=== PATIENT | female | born 1990 | race Hispanic/Latino ===

== ENCOUNTER 2016-07-17 21:21 | Emergency (ER) | payer OTHER ==
[~2016-07-17] VITALS: Ht 147.3 cm; Wt 68.2 kg
[~2016-07-17 21:21] MED LIST: ONDA4TAB12 PO; ONDA4TAB9 PO; ONDA8TAB10 PO; OXYC1TAB24 PO; SULF1TAB7 PO; TAMS0.4C98 PO
[2016-07-17 21:24] VITALS: BP 132/89; PULSE 112; RESP 16; O2SAT 96
--- NOTE | 2016-07-17 22:28 | ED.REPORT ---
HPI-Dyspnea / Wheezing Date of Service Jul 17, 2016 ED Provider: Juanjo Jacobo MD This is a 26 year old female with a history of asthma presenting to the emergency department due to cough that began 3 days ago. Associated symptoms include shortness of breath, chest pain, bilateral earache, sore throat, fever, and chills. Cough is productive with green sputum. Chest pain exacerbated by deep inspiration. She is not using an inhaler at this time and has not required one previously. Denies nausea, vomiting, abdominal pain, dizziness, lightheadedness, headache, bowel or bladder changes. Nursing Notes Stated Complaint: CHEST PAIN, SORE THROAT Chief Complaint: Respiratory Complaints Nursing Notes Reviewed: Yes Allergies: Coded Allergies: No Known Allergies (Verified Allergy, Unknown, 08/20/15) Scheduled Ondansetron ODT (Ondansetron ODT) 8 Mg Tab.rapdis 8 MG PO QID Sulfamethoxazole/Trimeth 800-160 mg (Bactrim DS) 1 Each Tablet 1 TABLET PO BID Tamsulosin (Flomax) 0.4 Mg Capsule 0.4 MG PO DAILY Scheduled PRN Ondansetron ODT (Ondansetron ODT) 4 Mg Tab.rapdis 4 MG PO [id number] PRN PRN For Nausea Ondansetron ODT (Zofran ODT) 4 Mg Tablet 4 MG PO Q4H PRN PRN For Nausea Ondansetron ODT (Ondansetron ODT) 8 Mg Tab.rapdis 8 MG PO QID PRN PRN For Nausea oxyCODONE-Acetaminophen 5-325 mg (oxyCODONE-Acetaminophen 5-325 mg) 1 Each Tablet 1-2 TAB PO Q6H PRN PRN For Pain General Time Seen by MD: 22:25 Chief Complaint Shortness of breath Hx Obtained From: Patient Arrived By: Walk-in Sudden in Onset?: Yes Onset Occurred: Yesterday Symptom Duration: Since onset Severity: Current: Mild Pertinent Negative: Pt denies other symptoms Recent Healthcare: No recent doctor visit, No recent hospitalization Similar Sx Previous: No Risk Factors CAD Risk Stratification No Diabetes mellitus, No Hyperlipidemia, No Hypertension, No Known CAD, No Smoking Risk factors reviewed, No risk factors Past Medical History Past Medical History Reports: Asthma Past Surgical History wrist surgery and oral surgery as a child Reports: , Cholecystectomy Smoking History Never Smoker Social History Alcohol Use: Denies alcohol use Drug Use: Denies drug use Other Social History: Good social support, Lives with children, Local resident Occupation lives with children Ambulatory Status Independent Review of Systems Constitutional: Reports: Chills, Fever, Malaise Respiratory: Reports: Prod cough, green, Shortness of breath Cardiovascular: Reports: Chest pain Complete sys rev & neg: except as marked. Physical Exam Initial Vital Signs Vital Signs (First) Date Time Temp Pulse Resp B/P Pulse Ox O2 Delivery O2 Flow Rate FiO2 07/17/16 21:24 37.2 112 16 132/89 96 Room Air Initial VS: Reviewed, Vital signs abnormal Head / Eyes: Atraumatic, Normocephalic, PERRL ENT: Mucous membranes moist, Conjunctiva normal, No scleral icterus Abdomen / GI: Soft, Non-tender, No guarding, No rebound, No distention Extremities: Vascular intact, Neuro intact, No swelling, No tenderness Skin: Warm, Dry, No cyanosis Neurologic: Alert, Oriented, Nonfocal Psychiatric: Mood/affect normal, Behavior normal, Normal thought content General/Constitutional: Awake, Alert Neck: Supple, No meningismus, Full range of motion, Non-tender, No masses Soft Tissue Neck: Positive: Cervical adenopathy L..., Cervical adenopathy R... Respiratory / Chest: No respiratory distress, No wheezing Cardiovascular: Heart rate NL, Regular rhythm, Heart sounds NL, Peripheral circulation NL ENT: Mucous membranes moist, Tympanic membs NL Pharynx / Tonsils / Uvula: Positive: Pharyngeal erythema Interpretation & Diagnostics X-Ray Chest Interpretation Interpretation / Wet Read by: Wet read ED physician Infiltrate / Pneumothorax: Infiltrate L lower lung Re-Eval/Medical Decision Med Decision/Clinical Course 26-year-old female with left lower lobe pneumonia, strep throat, and UTI. Treated with azithromycin. She does not meet any admission criteria. Counseled Regarding: Diagnosis, Lab results, Need for follow-up, When/why to return to ED Discharge & Departure Impression: Primary Impression: Pneumonia Pneumonia type: due to unspecified organism Laterality: left Lung location : lower lobe of lung Qualified Code: J18.9 - Pneumonia, unspecified organism Additional Impressions: Strep pharyngitis UTI (lower urinary tract infection) Disposition: Home Discharge Condition All VS Reviewed: Yes Condition: Stable Patient Instructions: Bacterial Pneumonia (ED), Strep Throat (ED), Urinary Tract Infection in Women (DC) Additional Instructions: You have left lower lobe pneumonia, strep throat, and a urinary tract infection. 250 mg, 2 pills now then 1 pill daily until gone #6 dispensed. Drink plenty of fluids. Your son needs to be checked for strep throat also. See your regular doctor if not improving in 2 or 3 days. Referrals: Rosalina Jimenez MD (PCP) Scribe Attestation Portions of this note were transcribed by Leroy Mtz. I, Dr. Jacobo personally performed the history, physical exam and medical decision-making; I reviewed and confirmed the accuracy of the information in the transcribed note. Signed by: iker Martines. 07/17/2016, 06:00. Juanjo Jacobo MD Jul 17, 2016 22:28 LEROY MTZ Jul 17, 2016 22:37
[2016-07-17] MEDS ORDERED: _Azithromycin 250 mg Tablet PO SCH (22:40)
[2016-07-17 23:11] VITALS: BP 126/92; PULSE 116; RESP 16; O2SAT 97
--- NOTE | 2016-07-18 08:23 | DRSVH ---
PROCEDURE: X-RAY CHEST ONE VIEW, PORTABLE ([id number]) INDICATIONS: cough TECHNIQUE: One view of the chest was acquired. COMPARISON: None. FINDINGS: Surgical changes and devices: None. Lungs and pleura: No pleural effusions or pneumothorax. Mild patchy opacity at the left medial lung base. Mediastinum: Mediastinal contours appear normal. Heart size is normal. Bones and chest wall: No suspicious bony lesions. Overlying soft tissues appear unremarkable. IMPRESSION: Mild left basilar atelectasis versus pneumonia. Dictated by: Carole Reyes M.D. on 07/18/2016 at 8:21 Approved by: Carole Reyes M.D. on 07/18/2016 at 8:21
== END 2016-07-17 23:12 | disposition home or self-care (01) ==
LOC: SED 21:21
DX: J18.9 Pneumonia, unspecified organism (principal); J02.0 Streptococcal pharyngitis; N39.0 Urinary tract infection, site not specified; R06.02 Shortness of breath; R07.9 Chest pain, unspecified; J45.909 Unspecified asthma, uncomplicated

== ENCOUNTER 2016-07-18 23:51 | Emergency (ER) | payer OTHER ==
[~2016-07-18] VITALS: Ht 147.3 cm; Wt 68.2 kg
[2016-07-18 23:57] VITALS: BP 123/87; PULSE 111; RESP 15; O2SAT 98
--- NOTE | 2016-07-19 02:05 | ED.REPORT ---
HPI-Dyspnea / Wheezing Date of Service Jul 19, 2016 ED Provider: Juanjo Jacobo MD Patient is a 26 year old female with a history of asthma who was recently diagnosed with pneumonia, strep throat, and a UTI presents to the ED complaining of shortness of breath, after experiencing 4 days of upper respiratory symptoms. Patient was seen in the ED yesterday for this complaint and was started on Azithromycin. Patient states that her symptoms have not improved since she started taking the antibiotics and that she is now having difficulty breathing. She reports chest pain with respiration and that her normal pain medication has not improved her symptoms. Patient reports being nauseated and that she has barely been able to consume her medications. She has not vomited. Patient reports ongoing cough and congestion but denies a fever. Nursing Notes Stated Complaint: POSSIBLE PNEUMONIA/UTI Chief Complaint: Respiratory Complaints Nursing Notes Reviewed: Yes Allergies: Coded Allergies: No Known Allergies (Verified Allergy, Unknown, 08/20/15) Scheduled Cephalexin (Cephalexin) 500 Mg Capsule 500 MG PO TID Ondansetron ODT (Ondansetron ODT) 8 Mg Tab.rapdis 8 MG PO QID Ondansetron ODT (Ondansetron ODT) 8 Mg Tab.rapdis 8 MG PO QID Sulfamethoxazole/Trimeth 800-160 mg (Bactrim DS) 1 Each Tablet 1 TABLET PO BID Tamsulosin (Flomax) 0.4 Mg Capsule 0.4 MG PO DAILY Scheduled PRN Ondansetron ODT (Ondansetron ODT) 4 Mg Tab.rapdis 4 MG PO [id number] PRN PRN For Nausea Ondansetron ODT (Zofran ODT) 4 Mg Tablet 4 MG PO Q4H PRN PRN For Nausea Ondansetron ODT (Ondansetron ODT) 8 Mg Tab.rapdis 8 MG PO QID PRN PRN For Nausea oxyCODONE-Acetaminophen 5-325 mg (oxyCODONE-Acetaminophen 5-325 mg) 1 Each Tablet 1-2 TAB PO Q6H PRN PRN For Pain General Time Seen by MD: 02:03 Chief Complaint Cough, Shortness of breath Hx Obtained From: Patient Arrived By: Walk-in Sudden in Onset?: No Onset Occurred: 4 days ago Symptom Duration: Since onset Location: : Chest left: Chest right Quality: Pleuritic Severity: Current: Moderate Severity: Maximum: Moderate Recent Healthcare: Recent doctor visit Similar Sx Previous: Yes Past Medical History Past Medical History kidney stones Reports: Asthma Past Surgical History wrist surgery and oral surgery as a child Reports: , Cholecystectomy Smoking History Never Smoker Social History Alcohol Use: Denies alcohol use Drug Use: Denies drug use Other Social History: Good social support, Lives with children, Local resident Occupation lives with children Ambulatory Status Independent Review of Systems Constitutional: Denies: Chills, Fever Ears / Nose / Throat: Reports: Nasal congestion Respiratory: Reports: Non-productive cough, Pleuritic pain, Shortness of breath Complete sys rev & neg: except as marked. GI: Reports: Nausea, Denies: Vomiting Physical Exam Initial Vital Signs Vital Signs (First) Date Time Temp Pulse Resp B/P Pulse Ox O2 Delivery O2 Flow Rate FiO2 07/18/16 23:57 36.8 111 15 123/87 98 Room Air Initial VS: Reviewed, Vital signs abnormal Head / Eyes: Atraumatic, Normocephalic, PERRL ENT: Conjunctiva normal, No scleral icterus Abdomen / GI: Soft, Non-tender Extremities: Vascular intact, Neuro intact Skin: Warm, Dry, No cyanosis Neurologic: Alert, Oriented, Nonfocal Psychiatric: Mood/affect normal, Behavior normal, Normal thought content General/Constitutional: Awake, Alert, No acute distress wearing a mask Neck: Supple, Full range of motion Respiratory / Chest: Breath sounds NL, Breath sounds = bilat, No respiratory distress, No rales, No rhonchi, No wheezing Cardiovascular: Heart rate NL, Regular rhythm, Heart sounds NL, No murmurs Interpretation & Diagnostics Lab Results Interpretation Result Diagram: 07/19/16 0300 07/19/16 0300 Test 07/19/16 03:00 07/19/16 03:50 White Blood Count 3.4th/mm3 (3.8-10.1) Red Blood Count 5.42mil/mm3 (3.90-5.20) Hemoglobin 15.2g/dL (12.0-15.6) Hematocrit 45.1% (35.0-46.0) Mean Corpuscular Volume 83.2fL (81-100) Mean Corpuscular Hemoglobin 28.0pg (27.0-35.0) Mean Corpuscular Hemoglobin Concent 33.7% (32.0-37.0) Red Cell Distribution Width 13.7% (12.3-15.4) Platelet Count 238bil/L (150-400) Neutrophils (%) (Auto) 38.9% (40-74) Lymphocytes (%) (Auto) 46.6% (14-46) Monocytes (%) (Auto) 13.6% (4-12) Eosinophils (%) (Auto) 0% (0-5) Basophils (%) (Auto) 0.6% (0-3) Sodium Level 141mEq/L (134-144) Potassium Level 3.0mEq/L (3.5-5.2) Chloride Level 100mEq/L (97-108) Carbon Dioxide Level 25mmol/L (18-29) Blood Urea Nitrogen 9mg/dL (6-20) Creatinine 0.47mg/dL (0.57-1.00) Estimat Glomerular Filtration Rate 233mL/min (>59) Glucose Level 123mg/dL (60-99) Calcium Level 8.3mg/dL (8.5-10.1) Magnesium Level 2.1mg/dL (1.6-2.6) Total Bilirubin 0.3mg/dL (0.0-1.2) Aspartate Amino Transf (AST/SGOT) 27U/L (0-50) Alanine Aminotransferase (ALT/SGPT) 22U/L (0-32) Alkaline Phosphatase 84U/L (25-150) Troponin T 0.010ug/L (0.0-0.011) Total Protein 7.6g/dL (6.4-8.4) Albumin 4.2g/dL (3.4-5.0) Lactic Acid Level 1.0mmol/L (0.4-2.0) Lab Results Interpretation: Hypokalemia ECG Interpretation ECG Interpretation: Sinus tachycardia, Rate 112 Time: 04:05 Interpreted by: ED physician X-Ray Chest Interpretation Chest Xray Interpretation: Impression: Improving left lower lobe pneumonia. View: AP & lat Interpretation / Wet Read by: Wet read ED physician Reviewed Previous Films: Improved Re-Eval/Medical Decision Med Decision/Clinical Course 26-year-old female with improving chest x-ray but clinically feels that she is getting worse. She was found to be hypokalemic. She was given fluids and potassium. She was given IV doses of antibiotic and Keflex was added. She is chronically dissatisfied with her care at [facility] related to her brother dying of pneumonia here. She does not meet any criteria for admission and actually appears to be improving. Source of Hx: Old records Re-Evaluation/Progress : Time of Eval: 05:22 Patient Status: Condition improved Re-Evaluation/Progress Note: Rechecked the patient after she received IV antibiotics in the ED. She is improved after breathing treatment. Informed her that her chest x-ray is improving on x-ray today. Patient understands and agrees with the plan to be discharged home. Discharge instructions and follow-up discussed. All questions were addressed. Return to the ED warnings given. Counseled Regarding: Diagnosis, Lab results, Need for follow-up, When/why to return to ED Discharge & Departure Impression: Primary Impression: Pneumonia Pneumonia type: due to unspecified organism Laterality: left Lung location : lower lobe of lung Qualified Code: J18.9 - Pneumonia, unspecified organism Additional Impressions: Strep pharyngitis UTI (lower urinary tract infection) Disposition: Home Discharge Condition All VS Reviewed: Yes Condition: Stable Patient Instructions: Community-acquired Pneumonia (ED) Additional Instructions: Continue the azithromycin. Add an additional antibiotic, cephalexin 500 mg by mouth 3 times a day, #30 prescription written. Ondansetron (Zofran) 8 mg ODT, 1 /2-1 tablet 4 times daily as needed for nausea and vomiting, #10 prescription written. Drink plenty of fluids. Follow-up here or with your regular doctor if you are not improving. Referrals: Rosalina Jimenez MD (PCP) Hellen Attestation Portions of this note were transcribed by Gloria Medina. I, Dr. Jacobo personally performed the history, physical exam and medical decision-making; I reviewed and confirmed the accuracy of the information in the transcribed note. Signed by: Hellen Ayala, 07/19/2016 0618 copies to: Rosalina Jimenez MD, Juanjo De La Garza MD Jul 19, 2016 02:05 Gloria Medina Jul 19, 2016 02:12
[2016-07-19] MEDS ORDERED: 0.9% Sodium Chloride 1,000 ML IV ONE (02:11)
[2016-07-19] MEDS ORDERED: Albuterol 2.5 mg/3 mL Inhalation Solution NEB ONE (02:15)
[2016-07-19] MEDS ORDERED: Albuterol-Ipratropium 3 mL Inhalation Solution NEB ONE (02:15)
[2016-07-19] MEDS ORDERED: Ondansetron 2 mg/mL 2 mL Inj IVPUSH PRN (02:40)
[2016-07-19] MEDS: HYDROmorphone 0.5 mg/0.5 mL iSecure Syringe IVPUSH PRN ×3 (03:09→04:34)
[2016-07-19 03:23] LABS: BASOPHILS % (AUTO) 0.6 % (0-3); EOSINOPHILS % (AUTO) 0 % (0-5); MONOCYTES % (AUTO) 13.6 % (4-12); Mean Corpuscular Volume 83.2 fL (81-100); NEUTROPHILS % (AUTO) 38.9 % (40-74); Platelet Count 238 bil/L (150-400)
[2016-07-19 03:35] VITALS: PULSE 91; RESP 16; O2SAT 99
[2016-07-19 03:44] LABS: TROPONIN T 0.01 ug/L (0.0-0.011)
[2016-07-19 03:56] LABS: Magnesium 2.1 mg/dL (1.6-2.6)
[2016-07-19] MEDS ORDERED: Azithromycin Inj 500 MG in Dextrose 5% w/Vial Mate 250 ML IV ONE (04:05)
[2016-07-19] MEDS ORDERED: Potassium Chloride 20 mEq SR Tablet PO ONE (04:05)
[2016-07-19] MEDS ORDERED: cefTRIAXone Inj 2,000 MG in Dextrose 5% Minibag Plus 50 ML IV ONE (04:05)
[2016-07-19] MEDS ORDERED: ONDA8TAB10 PO (05:33)
[2016-07-19] MEDS ORDERED: CEPH500C PO (05:33)
[2016-07-19 05:46] VITALS: BP_SYST 112; BP_SYST 118; BP_DIAS 72; BP_DIAS 81; PULSE 101; RESP 16; RESP 18; O2SAT 95; O2SAT 98
--- NOTE | 2016-07-19 11:42 | DRSVH ---
PROCEDURE: X-RAY CHEST, TWO VIEWS ([id number]) INDICATIONS: LEFT LOWER LOBE PNEUMONIA, WORSENING. TECHNIQUE: Two views of the chest were acquired. COMPARISON: [facility], CR, XR CHEST 1VW (PORTABLE), 07/17/2016, 21:55. FINDINGS: Surgical changes and devices: Cholecystectomy clips. Lungs and pleura: No pleural effusions or pneumothorax. Mild patchy opacity at the left medial lung base. Mediastinum: Mediastinal contours appear normal. Heart size is normal. Bones and chest wall: No suspicious bony lesions. Overlying soft tissues appear unremarkable. IMPRESSION: 1. No change in left basilar atelectasis versus developing pneumonia. Dictated by: Shailesh GARCIA Interpreted: Gillian Lane MD on 07/19/2016 at 9:34 Transcribed by: WANDA on 07/19/2016 at 14:42 Approved by: Gillian Lane M.D. on 07/21/2016 at 16:03
== END 2016-07-19 05:34 | disposition home or self-care (01) ==
LOC: SED 23:51
DX: J18.9 Pneumonia, unspecified organism (principal); N39.0 Urinary tract infection, site not specified; J02.0 Streptococcal pharyngitis; J45.909 Unspecified asthma, uncomplicated
CPT/HCPCS: 36415; 71020; 80053; 83605; 83735; 84484; 85025; 93005; 94664; 96361; 96365; 96375; 99285; J0696; J1170; J2405; J7030